=== PATIENT | female | born 1995 ===

== ENCOUNTER 2021-07-13 07:44 | Inpatient (IN) ==
[2021-07-13] MEDS ORDERED: Metoclopramide 10 MG/2 ML VIAL IVP PRN (07:57)
[2021-07-13] MEDS ORDERED: Penicillin G Potassium 5,000,000 UNIT in 0.9 % Sodium Chloride Mini Bag 100 ML IVPB ONE (07:57)
[2021-07-13] MEDS ORDERED: Lidocaine 1% 20 ML MDV INFILT PRN (07:57)
[2021-07-13] MEDS ORDERED: Ondansetron 4 MG/2 ML VIAL IVP PRN (07:57)
[2021-07-13] MEDS ORDERED: Azithromycin 500 MG in 0.9 % Sodium Chloride 250 ML IVPB PRN (07:57)
[2021-07-13] MEDS ORDERED: Famotidine 20 MG/2 ML VIAL IVP PRN (07:57)
[2021-07-13] MEDS ORDERED: Oxytocin 20 units/ LR 1000 mL 20 UNIT/1,000 ML BAG IVC SCH (08:00)
[2021-07-13] MEDS ORDERED: Ringers Solution, Lactated 1,000 ML IVC SCH (08:00)
[2021-07-13 09:10] LABS: Basophils # 0.1 K/mcL (0.0-0.2); Basophils % 0.5 %; Eosinophils # 0.2 K/mcL (0.0-0.6); Eosinophils % 1.6 %; Hematocrit 39.5 % (35.3-44.9); Hemoglobin 12.4 g/dL (11.5-15.4); Immature Granulocytes % 0.7 % (0-4); Lymphocytes # 1.7 K/mcL (0.6-4.6); Lymphocytes % 15.9 %; Mean Corpuscular HGB Conc 31.4 g/dL (31.6-35.5); Mean Corpuscular Hemoglobin 26.7 pg (28.0-33.3); Mean Corpuscular Volume 84.9 fL (83.0-100.0); Mean Platelet Volume 11.7 fL (9.4-12.4); Monocytes # 0.9 K/mcL (0.0-1.3); Monocytes % 8.7 %; Neutrophils # 7.8 K/mcL (1.6-8.9); Platelet Count 242 K/mcL (140-400); Red Blood Count 4.65 M/mcL (3.82-4.97); Red Cell Distribution Width 13.6 % (11.5-14.5); Segmented Neutrophils % 72.6 %; White Blood Count 10.7 K/mcL (4.3-11.1)
[2021-07-13 11:05] LABS: Influenza A PCR Negative (Negative); Influenza B PCR Negative (Negative); Resp. Syncytial Virus PCR Negative (Negative); SARS-CoV-2 by PCR (In House) Negative (Negative)
[2021-07-13 11:17] LABS: Amphetamine Screen,Urine Negative ng/mL (Cutoff=1000); Barbiturate Screen,Urine Negative ng/mL (Cutoff=200); Benzodiazepines Screen,Urine Negative ng/mL (Cutoff=200); Cannabinoid Screen,Urine Negative ng/mL (Cutoff = 50); Cocaine Screen,Urine Negative ng/mL (Cutoff= 300); Opiate Screen,Urine Negative ng/mL (Cutoff=300); Phencyclidine Screen,Urine Negative ng/mL (Cutoff=25)
[2021-07-13] MEDS: Penicillin G Potassium 2,500,000 UNIT/105 ML MLS IVPB SCH ×3 (12:49→20:34)
[2021-07-13] MEDS: *HR* Nalbuphine 10 MG/ML AMPUL IV PRN ×2 (15:35→18:14)
[2021-07-13] MEDS ORDERED: Epidural Premix (fent/bupiv) 110 ML EP SCH (18:45)
[2021-07-13] MEDS ORDERED: EPHEDrine 50 MG/ML VIAL IVP PRN (18:45)
[2021-07-13] MEDS ORDERED: *HR* FentaNYL (PF) 100 MCG/2 ML VIAL EP ONE (18:45)
[2021-07-13] MEDS ORDERED: Ropivacaine/PF 0.2% 20 ML VIAL EP ONE (18:45)
[2021-07-13] MEDS ORDERED: Ropivacaine/PF 0.2% 20 ML VIAL ONE (18:49)
[2021-07-13] MEDS ORDERED: *HR* FentaNYL (PF) 100 MCG/2 ML VIAL ONE (18:49)
[2021-07-13] MEDS ORDERED: Epidural Premix (fent/bupiv) 110 ML EP ONE (18:50)
[2021-07-14] MEDS ORDERED: Acetaminophen 325 MG TABLET PO SCH (00:35)
[2021-07-14] MEDS ORDERED: Lanolin 7 G OINT...G. TP PRN (00:35)
[2021-07-14] MEDS ORDERED: Measles/Mumps/Rubella Vacc 0.5 ML VIAL SQ PRN (00:35)
[2021-07-14] MEDS ORDERED: Ondansetron ODT 4 MG TAB.RAPDIS SL PRN (00:35)
[2021-07-14] MEDS ORDERED: Oxytocin 20 units/ LR 1000 mL 20 UNIT/1,000 ML BAG IVC SCH (00:35)
[2021-07-14] MEDS ORDERED: Benzocaine/Menthol 56 GM AEROSOL SPRAY TP PRN (00:35)
[2021-07-14] MEDS: Ibuprofen 600 MG TABLET PO SCH ×3 (03:18→20:32)
[2021-07-14] MEDS ORDERED: Prenatal Vit/FA 1 EACH TABLET PO SCH (09:00)
[2021-07-14] MEDS ORDERED: NON-FORMULARY MEDICATION 1 EACH EACH (Pnv No.95/Ferrous Fum/Folic Ac [Prenatal Caplet] 1 E PO SCH (09:00)
[2021-07-14 21:40] VITALS: BP 115/82; PULSE 85; TEMP 98.3; O2SAT 98
== END 2021-07-14 20:33 | disposition home or self-care (01) | DRG 807 ==
LOC: 1NENULAB 07:44 → 1NENUOBS 07-14 00:15
PROVIDERS: ADMIT Advanced Practice Midwife; ATTEND Advanced Practice Midwife